=== PATIENT | male | born 1995 | race Caucasian/White ===

== ENCOUNTER 2017-01-11 15:50 | Emergency (ER) | payer BC ==
[2017-01-11 16:10] VITALS: BP 127/78
--- NOTE | 2017-01-11 16:48 | EDM.PDOC ---
ED HPI GI/ABDOMINAL - General Chief Complaint: Abdominal Pain Stated Complaint: RECTAL BLEED Time Seen by Provider: 01/11/17 16:08 Source of Information: Reports: Patient History Limitations: Reports: No limitations - History of Present Illness INITIAL COMMENTS - FREE TEXT/NARRATIVE: The patient presents with lower abdominal pain and rectal bleeding. This has been going on for about 1 year. He saw Juan Francisco Edwards who referred him to Dr Hall. Dr Hall scheduled him for a colonoscopy twice and he did not show up either time. He said he had work obligations. Now the bleeding has become worse. It happens daily. He has some lower abdominal pain with it. As far as he knows he does not have any hemorrhoids. He has no pain with bowel movements. He has changed his diet. He does not drink as much alcohol and he is not drinking sodas or energy drinks any more. He has no fever, chills, chest pain or shortness of breath. Timing/Duration: Reports: Week(s): (For the past year) Location: other (Lower abdomen) Quality: Reports: ache Severity: mild Context: Denies: sick contact, bad/questionable food, out of country travel, recent surgery, recent trauma, lifting, activity/exercise Associated Symptoms: Reports: bloody stools. Denies: diarrhea, fever/chills, loss of appetite, nausea/vomiting - Related Data Allergies/ADRs: Allergies Allergy/AdvReac Type Severity Reaction Status Date / Time No Known Allergies Allergy Verified 09/19/15 16:15 Home Meds: Home Meds . [No Known Home Meds] 01/11/17 [History] Past Medical History - Past Health History Medical/Surgical History: Denies Medical/Surgical History - Past Surgical History Other Musculoskeletal Surgeries/Procedures:: ulna surgery Social & Family History - Tobacco Use Smoking Status *Q: Current Every Day Smoker Years of Tobacco use: 5 Packs/Tins Daily: 0.5 - Caffeine Use Caffeine Use: Reports: Coffee, Soda, Tea - Alcohol Use Days Per Week of Alcohol Use: 0 - Recreational Drug Use Recreational Drug Use: No Drug Use in Last 12 Months: Yes Recreational Drug Type: Reports: Marijuana/Hashish Other Recreational Drug Type: none since onset of bleeding Recreational Drug Use Frequency: Not Used In Over 6 Months ED ROS GENERAL - Review of Systems Review Of Systems: See Below Constitutional: Reports: no symptoms HEENT: Reports: No symptoms Respiratory: Reports: no symptoms Cardiovascular: Reports: No symptoms Endocrine: Reports: no symptoms GI/Abdominal: Reports: Abdominal pain (Mild lower abdominal pain), Bloody stool : Reports: no symptoms Musculoskeletal: Reports: no symptoms Skin: Reports: no symptoms ED EXAM, GI/ABD - Physical Exam Exam: See Below Exam Limited By: No limitations General Appearance: alert, no apparent distress Ears: normal external exam Nose: normal inspection Head: atraumatic, normocephalic Neck: normal inspection Respiratory/Chest: no respiratory distress, lungs clear, normal breath sounds Cardiovascular: regular rate, rhythm, no edema, no murmur GI/Abdominal: soft, no organomegaly, no mass, tenderness (Mild tenderness to the lower abdomen) Rectal (Males) Exam: Heme + stool, Other (Maroon colored stool) Course - Vital Signs Last Recorded V/S: Last Vital Signs Temp 97.4 F 01/11/17 16:08 Pulse 64 01/11/17 16:08 Resp 20 01/11/17 16:08 BP 127/78 01/11/17 16:08 Pulse Ox 100 01/11/17 16:08 - Orders/Labs/Meds Labs: Laboratory Tests 01/11/17 Range/Units 16:50 WBC 5.24 (4.23-9.07) K/mm3 RBC 4.70 (4.63-6.08) M/mm3 Hgb 14.2 (13.7-17.5) gm/L Hct 41.7 (40.1-51.0) % MCV 88.7 (79.0-92.2) fl MCH 30.2 (25.7-32.2) pg MCHC 34.1 (32.2-35.5) g/dl RDW Std Deviation 40.5 (35.1-43.9) fL Plt Count 194 (163-337) K/mm3 MPV 10.1 (9.4-12.3) fl Neut % (Auto) 37.4 (34.0-67.9) % Lymph % (Auto) 48.3 (21.8-53.1) % [place] % (Auto) 10.3 (5.3-12.2) % Eos % (Auto) 3.4 (0.8-7.0) Baso % (Auto) 0.4 (0.1-1.2) % Neut # 1.96 (1.78-5.38) K/mm3 Lymph # 2.53 (1.32-3.57) K/mm3 [place] # 0.54 (0.30-0.82) K/mm3 Eos # 0.18 (0.04-0.54) K/mm3 Baso # 0.02 (0.01-0.08) K/mm3 - Re-Assessments/Exams Free Text/Narrative Re-Assessment/Exam: 01/11/17 17:41 His HGb looks good. I talked with Dr Fuentes and he can see him Monday at 2:15. I will discharge him home. Departure - Departure Time of Disposition: 17:45 Disposition: Home, Self-Care 01 Condition: good Clinical Impression: Lower GI bleed Referrals: Carlos Fuentes MD [Physician] - (Monday at 2:15) Forms: ED Department Discharge Additional Instructions: Follow up with Dr Carlos Fuentes on Monday at 2:15. Please return if the bleeding and pain get worse.
== END 2017-01-11 17:50 | disposition home or self-care (01) ==
LOC: JD.ED 15:50
DX: K92.1 Melena (principal); F17.200 Nicotine dependence, unspecified, uncomplicated
CPT/HCPCS: 36415; 85025; 99283; 99285